=== PATIENT | female | born 1940 | race Caucasian/White ===

== ENCOUNTER 2022-09-30 07:58 | Outpatient (RCR) | payer MEDICARE, SELFPAY | END 2022-11-19 09:36 | disposition home or self-care (01) | LOC: HO.WCC 07:58 | PROVIDERS: PCP Internal Medicine; Referring Provider Podiatrist; Visit Provider Surgery | DX: Z09 Encounter for follow-up examination after completed treatment for conditions other than malignant neoplasm (principal); I73.89 Other specified peripheral vascular diseases; M34.1 CR(E)ST syndrome; Z87.2 Personal history of diseases of the skin and subcutaneous tissue | CPT/HCPCS: 11042; 97597; 99212 ==